=== PATIENT | female | born 2000 | race Caucasian/White ===

== ENCOUNTER 2018-05-27 15:24 | Emergency (ER) | payer MEDICAID ==
[~2018-05-27] VITALS: Ht 172.7 cm; Wt 133.0 kg
[2018-05-27 15:52] VITALS: BP 129/70
[2018-05-27 16:41] LABS: URINE HCG POSITIVE (NEG)
== END 2018-05-27 18:33 | disposition home or self-care (01) ==
LOC: ER 15:24
DX: Z34.82 Encounter for supervision of other normal pregnancy, second trimester (principal); I10 Essential (primary) hypertension; F17.200 Nicotine dependence, unspecified, uncomplicated; Z56.0 Unemployment, unspecified
CPT/HCPCS: 36415; 76805; 81025; 84702; 86900; 86901; 99285

== ENCOUNTER 2018-08-18 11:47 | Emergency (ER) | payer MEDICAID ==
[~2018-08-18] VITALS: Ht 170.2 cm; Wt 143.2 kg
[2018-08-18 12:14] VITALS: BP 140/96
[2018-08-18] MEDS ORDERED: LIDOcaine Viscous 15ml cup MM STA (13:22)
[2018-08-18] MEDS ORDERED: LIDO20SO16 PO (13:45)
[2018-08-18] MEDS ORDERED: DOCU-28 PO (13:45)
[2018-08-18] MEDS ORDERED: GLYC1MED64 TP (13:46)
== END 2018-08-18 14:12 | disposition home or self-care (01) ==
LOC: ER 11:47
DX: O22.42 Hemorrhoids in pregnancy, second trimester (principal); I10 Essential (primary) hypertension; Z79.899 Other long term (current) drug therapy; Z56.0 Unemployment, unspecified; Z3A.27 27 weeks gestation of pregnancy
CPT/HCPCS: 99282; 99283

== ENCOUNTER 2021-08-27 20:30 | Emergency (ER) | payer MEDICAID ==
[~2021-08-27] VITALS: Ht 172.7 cm; Wt 140.9 kg
[~2021-08-27 20:30] MED LIST: DOCU-28 PO; GLYC1MED64 TP; LIDO20SO16 PO
[2021-08-27 20:41] VITALS: BP 132/91
[2021-08-27 21:25] LABS: URINE HCG POSITIVE (NEG)
== END 2021-08-27 22:41 | disposition home or self-care (01) ==
LOC: ER 20:30
DX: O26.891 Other specified pregnancy related conditions, first trimester (principal); I10 Essential (primary) hypertension; Z56.0 Unemployment, unspecified
CPT/HCPCS: 81025; 99283

== ENCOUNTER 2021-10-26 16:26 | Emergency (ER) | payer MEDICAID ==
[~2021-10-26] VITALS: Ht 172.7 cm; Wt 150.0 kg
[2021-10-26 17:01] VITALS: BP 134/84
[2021-10-26] MEDS ORDERED: ondansetron 4mg rapidly disintigrating tab PO ONE (17:05)
[2021-10-26] MEDS ORDERED: mag hydrox/Alum hydrox/simeth 30ml oral suspension PO ONE (17:05)
[2021-10-26] MEDS ORDERED: ONDA4TAB6 PO (17:07)
== END 2021-10-26 17:20 | disposition home or self-care (01) ==
LOC: ER 16:27
DX: R11.0 Nausea (principal); R42 Dizziness and giddiness; Z56.0 Unemployment, unspecified; Z79.899 Other long term (current) drug therapy
CPT/HCPCS: 99283

== ENCOUNTER 2025-01-03 13:21 | Emergency (ER) | payer MEDICAID ==
[~2025-01-03] VITALS: Ht 172.7 cm; Wt 154.6 kg
[~2025-01-03 13:21] MED LIST changes: +ONDA4TAB6 PO
[2025-01-03 14:02] LABS: BILIRUBIN,URINE NEGATIVE (Neg); CLARITY,URINE SLIGHTLY CLOUDY (Clear); COLOR,URINE YELLOW (Yellow); GLUCOSE, URINE NEGATIVE (Neg); KETONES,URINE NEGATIVE (Neg); LEUKOCYTE ESTERASE ,URINE NEGATIVE (Neg); NITRITES, URINE NEGATIVE (Neg); OCCULT BLOOD,URINE NEGATIVE (Neg); PROTEIN,URINE NEGATIVE (Neg); UROBILINOGEN,URINE 0.2 E.U/dL (0.2-1.0)
[2025-01-03] MEDS ORDERED: ondansetron 4mg rapidly disintigrating tab PO ONE (14:05)
[2025-01-03] MEDS ORDERED: ketorolac trometh 30MG/ML vial 30 MG/ML VIAL IM ONE (14:05)
[2025-01-03 14:06] LABS: URINE HCG NEGATIVE (NEG)
[2025-01-03 14:08] LABS: UA COLLECTION TYPE CLN CATCH MIDSTREAM
[2025-01-03 14:09] LABS: BACTERIA,URINE FEW /HPF (Neg); MUCUS STRANDS FEW /LPF (Neg); RBC,URINE NONE SEEN /HPF (0-2); SQUAMOUS EPITHELIAL CELL,UR MANY /LPF (FEW); WBC,URINE 0-4 /HPF (0-4)
[2025-01-03 14:10] LABS: BASOPHILS % (AUTO) 0.5 % (0-1); EOSINOPHILS # (AUTO) 0.1 X10'3 (0-0.9); EOSINOPHILS % (AUTO) 0.7 % (0-6); HEMATOCRIT 39.5 % (35.0-45.0); HEMOGLOBIN 13.4 g/dl (12.0-16.0); LYMPHOCYTES # (AUTO) 2.8 X10'3 (1.1-4.8); LYMPHOCYTES % (AUTO) 39.1 % (21-51); MEAN CORPUSCULAR HEMOGLOBIN 29.1 PG (27.0-31.0); MEAN CORPUSCULAR HGB CONC 33.8 g/dL (33.0-36.5); MEAN CORPUSCULAR VOLUME 86.1 FL (78-98); MEAN PLATELET VOLUME 10.5 FL (7.4-10.4); MONOCYTES # (AUTO) 0.4 X10'3 (0-0.9); MONOCYTES % (AUTO) 5.8 % (2-12); NEUTROPHILS # (AUTO) 3.9 X10'3 (1.8-7.7); NEUTROPHILS % (AUTO) 53.9 % (42-75); PLATELET COUNT 143 X10'3 (140-440); RED BLOOD COUNT 4.59 X10'6 (4.20-5.60); RED CELL DISTRIBUTION WIDTH 13.5 % (11.5-14.5); WHITE BLOOD COUNT 7.2 X10'3 (4.5-11.0)
[2025-01-03 14:11] LABS: ALANINE AMINOTRANSFERASE 26 U/L (12-78); ALBUMIN 3.4 G/DL (3.4-5.0); ALBUMIN/GLOBULIN RATIO 0.9 (1.1-1.5); ALKALINE PHOSPHATASE 78 IU/L (46-116); ANION GAP 8 (8-16); ASPARTATE AMINO TRANSFERASE 12 U/L (10-37); BILIRUBIN,TOTAL 0.4 MG/DL (0.1-1.0); BLOOD UREA NITROGEN 14 MG/DL (7-18); BUN/CREATININE RATIO 23.3 (10.0-20.0); CALCIUM 8.8 MG/DL (8.5-10.1); CHLORIDE 106 MMOL/L (99-107); GLUCOSE 106 MG/DL (70-104); LIPASE 28 U/L (16-77); POTASSIUM 4.4 MMOL/L (3.5-5.1); SODIUM 142 MMOL/L (135-145); TOTAL CARBON DIOXIDE 28.2 MMOL/L (24-32); TOTAL PROTEIN 7.3 G/DL (6.4-8.2); eCRCL 143 ML/MIN; eGFR > 90 ML/MIN
[2025-01-03] MEDS: ketorolac trometh 15mg/ml vial 15 MG/ML ML IV ONE (14:44)
[2025-01-03] MEDS: normal saline 1000ML IV soln IVB ONE (14:45)
[2025-01-03] MEDS: morphine 4 MG/ML inj SYRINge IV ONE (14:45)
[2025-01-03] MEDS: ondansetron/PF 4mg/2ml inj IV ONE (14:45)
[2025-01-03] MEDS ORDERED: POLY119P2 PO (15:45)
[2025-01-03] MEDS ORDERED: DOCU-148 PO (15:45)
[2025-01-03] MEDS ORDERED: HYDR-3964 PO (15:45)
[2025-01-03] MEDS: HYDROcodone/acetaminophen 5mg/325mg tablet PO ONE (16:12)
[2025-01-03 16:47] VITALS: BP 137/88; PULSE 54; RESP 14; TEMP 97.2; O2SAT 99
== END 2025-01-03 16:50 | disposition home or self-care (01) ==
LOC: ER 13:22
DX: K56.7 Ileus, unspecified (principal); I10 Essential (primary) hypertension
CPT/HCPCS: 74176; 80053; 81001; 81025; 83690; 85025; 96361; 96374; 96375; 99285; J1885; J2270; J2405; J7030; A6449